=== PATIENT | male | born 1970 | race Caucasian/White ===

== ENCOUNTER 2021-01-15 17:06 | Emergency (ER) | payer BC, SELFPAY ==
--- NOTE | ~2021-01-15 | CT_ITS ---
EXAMINATION: CT abdomen pelvis w con INDICATION: Nausea and vomiting, right upper quadrant pain TECHNIQUE: Computed tomographic images of the abdomen and pelvis were obtained after the administrati on of 100 cc of Omnipaque 350 intravenous contrast. The dose-length product (DLP) was 1494.99 mGy-cm. Automated exposure control and iterative reconstruction technique were employed. COMPARISON: None available FINDINGS: The lung bases are clear. The heart size is normal. Punctate calcifications in otherwise no rmal appearing liver and spleen likely represent healed granulomatous disease. The pancreas and right adrenal gland are normal. There is a 4 cm low-density mass of the left adrenal gland, consistent wit h an adenoma. The gallbladder is distended and contains multiple stones. There appears to be a mild w all thickening of the gallbladder. There is mild edematous stranding of the pericholecystic fat. The kidneys are unremarkable. No pathologically enlarged abdominal or pelvic lymph nodes are identified. There is no free intraperitoneal gas or evidence of bowel obstruction. There is moderate lumbar spond ylosis. IMPRESSION: 1. Cholelithiasis with CT findings consistent with acute cholecystitis. Surgical evaluation is recomm ended. Consider further evaluation with ultrasound and/or nuclear hepatobiliary scan. Reviewed, dictated and finalized at location A. IMPRESSION: 1. Cholelithiasis with CT findings consistent with acute cholecystitis. Surgica l evaluation is recommended. Consider further evaluation with ultrasound and/or nuclear hepatobiliary scan.
[2021-01-15 17:10] VITALS: BP 191/118; PULSE 95; RESP 18; TEMP 36.9; O2SAT 98
--- NOTE | 2021-01-15 17:27 | ECG_ITS ---
Measurements Intervals [place] Rate: 79 P: 21 IA: 156 QRS: -1 QRSD: 97 T: 68 QT: 381 QTc: 437 Interpretive Statements SINUS RHYTHM ANTEROSEPTAL INFARCT, AGE INDETERMINATE BASELINE ARTIFACT- II, III, AVL, AVF ABNORMAL ECG Electronically Signed On 01-15-2021 17:38:49 CDT by Mandeep Velásquez D.O.
--- NOTE | 2021-01-15 17:33 | ED.GENADULT ---
HPI - General Adult General Chief complaint: Abdominal Pain Stated complaint: upper abd pain, nausea,sweating Source: patient Mode of arrival: ambulatory Limitations: no limitations History of Present Illness HPI narrative: Robi is a 50M with a PMH of GERD, and obesity that presented to the ED with RUQ pain. The pain started after eating a sandwich and drinking some beer a few days ago. It is a sharp stabbing pain that has been getting worse since that time. It radiates to his right upper back/shoulder. When he eats he gets nauseated and he has had 4 episodes of non-bloody vomiting. He denies any CP, SOB, lightheadedness, diarrhea, melena or hematochezia. Related Data Home Medications Medication Instructions Recorded Confirmed No Home Medications 01/15/21 01/15/21 Allergies Allergy/AdvReac Type Severity Reaction Status Date / Time No Known Allergies Allergy Verified 01/15/21 17:26 Review of Systems Constitutional: Constitutional: Reports chills Eyes: Eyes: Reports no additional eye complaints ENT: Reports system reviewed and no additional complaints, except as documented Cardiovascular: Cardiovascular: Reports no additional cardiovascular complaints Respiratory: Respiratory: Reports no additional respiratory complaints Gastrointestinal: Gastrointestinal: Reports as per HPI Genitourinary: Genitourinary: Reports no additional male genitourinary complaints Musculoskeletal: Musculoskeletal: Reports no additional musculoskeletal complaints Integumentary/Breasts: Skin/Breast: Reports system reviewed and no additional complaints, except as docu Neurologic: Reports system reviewed and no additional complaints, except as documented Psychiatric: Psychiatric: Reports no additional psychiatric complaints Endocrine: Endocrine: Reports no additional endocrine complaints Hematologic/Lymphatic: Hematologic/Lymphatic: Reports no additional hematologic/lymphatic complaints Allergic/Immunologic: Allergic/Immunologic: Reports no additional allergic/immunologic complaints Exam Const: General: no acute distress and alert Orientation/consciousness: patient oriented x3 Limitations: No altered mental status HENMT: Head: normal to inspection Other: atraumatic Eyes: Conjunctivae: conjunctivae normal Pupils: Equal, round and reactive pupils present Neck: Neck: normal visual inspection Chest: Chest palpation & inspection: normal inspection of the chest and abnormal inspection of the chest Resp: Effort & Inspection: normal respiratory effort Auscultation: clear to auscultation bilaterally Cardio: Rate: regular rate Rhythm: regular rhythm Heart sounds: no murmurs GI: Other: Normal bowel sounds. Very TTP in the RUQ. No guarding or rebound tenderness. negative obturator and psoas signs. : General: Yes no CVA tenderness Skin: General skin exam: normal color Rashes: no rashes Neuro: General: patient oriented x3, moves all extremities and CN's II-XI intact bilaterally Extrem: General: normal to inspection Psych: Appearance: grossly normal Mental Status: mental status grossly normal Course Course Emergency Course: Ordered morphine for pain, labs and CT abd/pelvis w/ contrast. Morhpine brought the pain from a 10 to a seven. Another dose was given that made the pain more manageable. Labs showed leukocytosis and an elevated bilirubin. EXAMINATION: CT abdomen pelvis w con INDICATION: Nausea and vomiting, right upper quadrant pain TECHNIQUE: Computed tomographic images of the abdomen and pelvis were obtained after the administration of 100 cc of Omnipaque 350 intravenous contrast. The dose-length product (DLP) was 1494.99 mGy-cm. Automated exposure control and iterative reconstruction technique were employed. COMPARISON: None available FINDINGS: The lung bases are clear. The heart size is normal. Punctate calcifications in otherwise normal appearing liver and spleen likely represent healed granulomatous diseas
[2021-01-15 17:46] LABS: Basophils Absolute Auto 0.08 K/mm3 (0.00-0.10); Basophils Percent Auto 0.6 % (0.0-1.0); Eosinophils Absolute Auto 0.01 K/mm3 (0.02-0.50); Eosinophils Percent Auto 0.1 % (1.0-6.0); Hematocrit 53.5 % (40.0-54.0); Hemoglobin 18.8 g/dL (14.0-18.0); Immature Granulocyte Absolute 0.07 K/mm3 (0.00-0.00); Immature Granulocyte Percent A 0.5 % (0.0-0.0); Lymphocytes Absolute Auto 0.89 K/mm3 (1.10-4.50); Lymphocytes Percent Auto 6.7 % (18.0-42.0); Mean Corpuscular HGB Conc 35.1 g/dL (32.0-36.0); Mean Corpuscular Hemoglobin 30.9 pg (27.0-31.0); Mean Corpuscular Volume 87.8 fL (78.0-102.0); Mean Platelet Volume 9.3 fl (8.7-11.0); Monocytes Absolute Auto 0.94 K/mm3 (0.10-0.90); Monocytes Percent Auto 7.1 % (2.0-11.0); Neutrophils Absolute Auto 11.3 K/mm3 (1.7-7.2); Platelet Count Result 284 K/mm3 (150-420); Red Blood Count 6.09 M/mm3 (4.70-6.10); Red Cell Distribution Width 11.9 % (11.6-14.4); White Blood Count 13.2 K/mm3 (4.8-10.8)
[2021-01-15 17:59] LABS: INR 1.1; Prothrombin Time 11.9 Seconds (9.50-12.10)
[2021-01-15] MEDS: ONDANSETRON INJ 4 MG/2 ML VIAL (18:04)
[2021-01-15] MEDS: MORPHINE SULFATE (*CRX) 4 MG/ML INJ IV PUSH ×2 (18:04→18:49)
[2021-01-15] MEDS: LACTATED RINGERS 1,000 ML 999 ML IV CONT (18:04)
[2021-01-15 18:05] LABS: Alanine Aminotransferase 42 U/L (16-63); Albumin Level 3.7 g/dL (3.4-5.0); Alkaline Phosphatase 91 U/L (46-116); Anion Gap 12 mmol/L (8-16); Aspartate Amino Transferase 27 U/L (15-37); Bilirubin,Total 1.3 mg/dL (0.00-1.00); Blood Urea Nitrogen 13 mg/dL (7-18); Carbon Dioxide 28 mmol/L (21-32); Chloride 98 mmol/L (98-108); Estimated Glomerular Filt Rate > 60; Glucose 137 mg/dL (70-99); Lipase 72 U/L (73-393); Osmolality Calculated 288 mOsm/kg (285-295); Potassium 3.9 mmol/L (3.5-5.1); Sodium 138 mmol/L (136-145); Troponin I 8.2 ng/L (0.00-60.4)
[2021-01-15 18:08] LABS: Lactic Acid Reflex 1.4 mmol/L (0.4-2.0)
[2021-01-15 18:10] LABS: Calcium 9.3 mg/dL (8.5-10.1)
[2021-01-15] MEDS: ERTAPENEM 1 GM/NS 50 ML 1 GM/50 ML BAG IVPB (19:47)
[2021-01-15 19:49] LABS: Add Urine Microscopic? YES; Appearance Urine Clear (Clear); Bilirubin Urine Negative (Negative); Blood Urine 3+ (Negative); Color Urine Yellow (Yellow); Glucose Urine UA Negative (Negative); Ketones Urine Trace (Negative); Leukocyte Esterase Ur Negative (Negative); Nitrate Urine Negative (Negative); Protein Urine 3+ (Negative)
[2021-01-15 19:54] LABS: Bacteria Urine Trace /hpf; Squamous Epithelial Cell Urine None seen /hpf (Few); WBC Urine 0-3 /hpf (0-3)
[2021-01-15] MEDS: HYDROmorphone HCL INJ (*CRX) 2 MG/ML VIAL 0.5 MG IV PUSH (20:26)
[2021-01-15 20:39] VITALS: BP 164/77; PULSE 74; RESP 18; O2SAT 96
[2021-01-15 21:38] VITALS: BP 163/89; PULSE 77; RESP 20; TEMP 37.1; O2SAT 97
== END 2021-01-15 22:07 | disposition short-term general hospital (02) ==
PROVIDERS: Emergency Provider Family Medicine; PCP Internal Medicine
DX: K80.40 Calculus of bile duct with cholecystitis, unspecified, without obstruction (principal)
CPT/HCPCS: 36415; 74177; 80053; 81001; 83605; 83690; 84484; 85025; 85610; 93005; 96361; 96365; 96375; 96376; 99285; J1170; J1335; J2270; J2405; J7120; Q9967

== ENCOUNTER 2021-01-15 23:17 | Inpatient (IN) | payer BC, SELFPAY ==
--- NOTE | ~2021-01-15 | US_ITS ---
US abdomen limited INDICATION: Cholelithiasis PROCEDURE: Realtime right upper abdominal ultrasound. COMPARISON: CT dated 01/15/2021. FINDINGS: The pancreas is normal without focal mass or pancreatic ductal dilation. Liver echotexture is increased, consistent with fatty infiltration. There is normal directional flow in the portal ve in. There are gallstones and gallbladder sludge. There is gallbladder wall thickening measuring 4 mm. Co mmon bile duct measures 7 mm. No sonographic Meek's sign. IMPRESSION: 1: Cholelithiasis with gallbladder sludge and gallbladder wall thickening. Findings suspicious for ch olecystitis. Consider correlation with nuclear hepatobiliary scan. 2: Hepatic steatosis. Reviewed, dictated and finalized at location A. IMPRESSION: 1: Cholelithiasis with gallbladder sludge and gallbladder wall thickening. Find ings suspicious for cholecystitis. Consider correlation with nuclear hepatobili griselda scan. 2: Hepatic steatosis.
--- NOTE | 2021-01-15 22:40 | ADMGEN ---
This patient, Robi Grimaldo, was admitted to Medical Room 346-. Patient/family oriented to hospital policies and general routines including ID bracelet, bed and alarms, visiting hours, pain management, procedures, bathroom and other care routines, personal items, smoking policy, room service/diet, and visiting hours. Information on how to activate the Rapid Response Team has been discussed. Patient/Family are encouraged to report perceived risks to care and to ask questions if they do not understand what they are told or what they should do.
[2021-01-15 23:02] VITALS: BMI 58.7
[2021-01-15 23:03] VITALS: BP 197/98; PULSE 77; RESP 20; TEMP 36.6; O2SAT 98
[2021-01-15] MEDS: LACTATED RINGERS 1,000 ML 100 ML IV CONT (23:36)
[2021-01-15] MEDS: MORPHINE SULFATE (*CRX) 2 MG/ML INJ IV PUSH (23:37)
[2021-01-16] VITALS (12 sets, daily range): BP systolic 153–193; BP diastolic 77–112; PULSE 75–104; RESP 13–25; TEMP 35.9–36.6; O2SAT 96–100
[2021-01-16 01:29] LABS: Add Urine Microscopic? YES; Appearance Urine Clear (Clear); Bilirubin Urine Negative (Negative); Blood Urine 2+ (Negative); Color Urine Yellow (Yellow); Glucose Urine UA Negative (Negative); Ketones Urine Negative (Negative); Leukocyte Esterase Ur Negative LEU/UL (Negative); Nitrate Urine Negative (Negative); Protein Urine 2+ mg/dL (Negative); Squamous Epithelial Cell Urine Rare /hpf (Few)
[2021-01-16 01:32] LABS: Specific Grav Ur 1.047 (1.001-1.035)
--- NOTE | 2021-01-16 04:16 | PM.IMHP ---
H&P: HPI History of Present Illness Date/Time: 01/16/21 04:16 Chief Complaint: EPIGASTRIC PAIN Narrative: THIS IS A 50-YEAR-OLD MALE WITH PAST MEDICAL HISTORY SIGNIFICANT FOR OBESITY, PATIENT PRESENTED TO THE EMERGENCY ROOM AT A [facility] DUE TO WORSENING EPIGASTRIC PAIN NAUSEA AND VOMITING FOR THE LAST COUPLE OF DAYS OR SO HE HAS NOT BEEN ABLE TO EAT HAS HAD ABDOMINAL PAIN LOCALIZED TO THE EPIGASTRIC AREA AT THE TIME OF MY VISIT HE RATED 7/10 HE DENIES ANY FEVERS ANY RIGORS ANY CHILLS STATES THAT HE HAD SIMILAR PAIN BEFORE 2 YEARS AGO BUT NOW HAS GOTTEN PROGRESSIVELY WORSE HAS BEEN PRESENT ALMOST DAILY AFTER MEALS MAINLY. PRELIMINARY WORKUP WAS SIGNIFICANT FOR CT OF ABDOMEN AND PELVIS WITH CHOLELITHIASIS AND CHOLECYSTITIS. PATIENT HAS BEEN TRANSFERRED FROM A [facility] TO [facility] FOR SURGERY EVALUATION. Review of Systems Review of Systems: EPIGASTRIC PAIN NAUSEA AND VOMITING Constitutional: Constitutional: Denies chills and Denies fever(s) Eyes: Eyes: Denies change in vision ENT: Reports system reviewed and no additional complaints, except as documented Cardiovascular: Cardiovascular: Denies irregular heart rhythm, Denies claudication, Denies lightheadedness, Denies radiating jaw, neck or arm pain, Denies palpitations, Denies dyspnea on exertion and Denies orthopnea Respiratory: Respiratory: Denies cough and Denies dyspnea Gastrointestinal: Gastrointestinal: Reports abdominal pain, Reports nausea and Reports vomiting Comments: METZGER IS NEGATIVE Genitourinary: Genitourinary: Denies dysuria and Denies flank pain Musculoskeletal: Musculoskeletal: Reports no additional musculoskeletal complaints Integumentary/Breasts: Skin/Breast: Reports system reviewed and no additional complaints, except as docu Neurologic: Reports system reviewed and no additional complaints, except as documented Psychiatric: Psychiatric: Reports no additional psychiatric complaints Endocrine: Endocrine: Reports no additional endocrine complaints Hematologic/Lymphatic: Hematologic/Lymphatic: Reports no additional hematologic/lymphatic complaints Allergic/Immunologic: Allergic/Immunologic: Reports no additional allergic/immunologic complaints [facility] Family History Family History (Updated 01/15/21 @ 23:00 by Anum Tamez RN) Sibling Acute myocardial infarction Diabetes mellitus Hypertension Sibling Acute myocardial infarction Mother Lung cancer Social History Social History Smoking status: Never smoker Second hand tobacco smoke exposure: No Alcohol intake: current Drinks per week: 30 Substance use: never Substance use type: does not use Gender identity (if verbalized by the patient): Male Sexual Orientation (if Verbalized by the Patient): Straight or Heterosexual Spiritual care concerns: No Meds Home Medications and Allergies Home Medications Medication Instructions Recorded Confirmed Type No Home Medications 01/15/21 01/15/21 History Allergies Allergy/AdvReac Type Severity Reaction Status Date / Time No Known Allergies Allergy Verified 01/15/21 22:58 Vital Signs Vital Signs - 24 hr 01/15/21 23:03 01/16/21 01:11 Temperature 97.8 F Pulse Rate 77 Respiratory Rate 20 Blood Pressure 197/98 H 168/98 H Pulse Oximetry 98 Exam Narrative: LAYING IN BED Const: General: cooperative, comfortable, no acute distress, well developed, alert, awake and other ( WELL-APPEARING) Nutritional Appearance: overweight Orientation/consciousness: patient oriented x3 HENMT: Head: normal to inspection, normocephalic and atraumatic Ears: hearing grossly normal bilaterally General nose exam: Normal external nose present Face and sinus: normal facial exam Mouth: Yes Normal oral and palatal mucosa present Eyes: General: appearance normal, both eyes and all related structures Alignment and Position: alignment normal
[2021-01-16] MEDS: MORPHINE SULFATE (*CRX) 2 MG/ML INJ IV PUSH ×2 (05:31→22:48)
[2021-01-16 06:18] LABS: Basophils Absolute Auto 0.1 K/mm3 (0.0-0.1); Basophils Percent Auto 0.5 % (0.2-1.2); Eosinophils Percent Auto 0.2 % (0-4.4); Hematocrit 50.8 % (42.0-52.0); Hemoglobin 17.2 g/dL (14.0-18.0); Immature Granulocyte Absolute 0.09 K/mm3 (0.00-0.031); Immature Granulocyte Percent A 0.6 % (0-0.5); Lymphocytes Absolute Auto 1.19 K/mm3 (0.9-3.2); Lymphocytes Percent Auto 8.2 % (18.3-44.2); Mean Corpuscular HGB Conc 33.9 g/dl (32-36); Mean Corpuscular Hemoglobin 30.8 pg (26-34); Mean Corpuscular Volume 90.9 fl (80-100); Mean Platelet Volume 9.5 fl (7.4-10.4); Monocytes Absolute Auto 1.9 K/mm3 (0.1-0.6); Monocytes Percent Auto 12.9 % (2.6-8.5); Neutrophils Absolute Auto 11.2 K/mm3 (1.3-6.7); Neutrophils Percent Auto 77.6 % (45.5-73.1); Platelet Count Result 264 k/mm3 (150-375); Red Blood Count 5.59 M/mm3 (4.6-6.20); Red Cell Distribution Width 12.6 % (11.5-14.5); White Blood Count 14.5 K/mm3 (4.5-10.0)
[2021-01-16 06:30] LABS: Partial Thromboplastin Time 34.9 SECONDS (22.3-36.8)
--- NOTE | 2021-01-16 09:53 | PM.CNGS ---
Assessment and Plan Assessment and plan (1) Acute calculous cholecystitis: Code(s): K80.00 - Calculus of gallbladder with acute cholecystitis without obstruction Status: Acute Assessment and Plan: CT scan and ultrasound reviewed and discussed with the patient in detail. He has evidence of acute cholecystitis with cholelithiasis and gallbladder sludge. WBC at 14,500 today. He continues to require IV analgesics into this morning, but reports his abdominal pain has improved some since being admitted. I discussed treatment options with the patient, including proceeding with surgery versus antibiotics and trying to advance his diet with outpatient follow-up. The patient would like to go ahead with surgery. Description of a laparoscopic cholecystectomy, possible open, was discussed in detail, as well as the risks, benefits, expected outcomes, and expected recovery. All questions were answered. I discussed the case with Dr. López, who will talk with the patient as well and look at the OR schedule. Continue NPO, IV antibiotics, IV fluids, and analgesics as needed. Additional Plan I have discussed the patient's case and plan of care with Dr. López. History of Present Illness Consult details Consult date: 01/16/21 Reason for consult: other (Possible acute cholecystitis with cholelithiasis) Requesting physician: Joana Jang MD Narrative: This is a 50-year-old obese male with a history of GERD, who presented to [place] ER yesterday with complaints of RUQ abdominal pain and vomiting. The patient reports an onset of RUQ abdominal pain Wednesday after eating a breakfast egg sandwhich. The pain continued throughout the day persisted without any alleviating factors. He tried to eat some grapes the following day, but otherwise has not had anything to eat since. He had 4-5 episodes of vomiting before coming into the ER. He also reports chills but no known fever. He then presented to the ER for further evaluation yesterday due the pain. CT scan of the abdomen and pelvis showed cholelithiasis with findings consistent with acute cholecystitis. Labs showed a WBC count of 13,200, but normal LFTs and lipase. The patient continued to have abdominal pain in the ER after receiving IV analgesics and was ultimately directly admitted to our hospital for surgical evaluation. Our service was consulted by the ED physician and the patient is now seen on the medical floor. He received IV Morphine just a few hours ago, which he says helps relieve his abdominal pain, but it begins to return a few hours after. Denies any nausea at this time. He does report having this type of pain intermittently in the past 2 years, but it is less severe and typically resolves spontaneously after a few hours. No previous surgical history. Review of Systems Review of Systems: All systems reviewed & are unremarkable except as noted in HPI and below Constitutional: Constitutional: Reports as per HPI, Denies chills, Denies fatigue and Denies fever(s) ENT: Reports system reviewed and no additional complaints, except as documented, Reports Normal hearing present and Denies dizziness Cardiovascular: Cardiovascular: Reports no additional cardiovascular complaints, Denies chest pain and Denies leg edema Respiratory: Respiratory: Reports no additional respiratory complaints, Denies cough and Denies dyspnea Gastrointestinal: Gastrointestinal: Reports as per HPI, Reports no additional gastrointestinal complaints, Reports abdominal pain, Denies change in bowel habits, Denies diarrhea, Reports nausea, Reports vomiting and Denies hematemesis Integumentary/Breasts: Skin/Breast: Denies wounds and Denies jaundice Neurologic: Reports system reviewed and no additional complaints, except as documented, Denies focal weakness, Denies numbness and Denies tingling PMFSH Past Medical History Medical History GERD (gastroesophageal reflux disease) S
[2021-01-16] MEDS: LACTATED RINGERS 1,000 ML 100 ML IV CONT ×2 (10:29→23:20)
--- NOTE | 2021-01-16 13:52 | WPDANESEPPF ---
Anes - Initial Pre Proc Eval Procedure: Operation Date: 01/16/21 16:00 Proposed Procedures p Laparoscopic Cholecystectomy, Possible Open - Akua López MD Date/Time: 01/16/21 13:52 Surgeon: Joana Jang MD Pre Op Diagnosis: Acute Cholecystitis Patient Data Age: 50 Gender: M Height: 1.8 m Weight: 132.6 kg Last Vital Signs Temp 35.9 C L 01/16/21 08:00 Pulse 83 01/16/21 08:00 Resp 16 01/16/21 08:00 BP 168/95 H 01/16/21 08:00 Pulse Ox 98 01/16/21 08:00 Allergies Allergy/AdvReac Type Severity Reaction Status Date / Time No Known Allergies Allergy Verified 01/15/21 22:58 Home Medications Medication Instructions Recorded Confirmed Type No Home Medications 01/15/21 01/15/21 History Laboratory Tests 01/16/21 01/16/21 01/16/21 01:16 05:54 05:54 WBC 14.5 K/mm3 H K/mm3 (4.5-10.0) RBC 5.59 M/mm3 M/mm3 (4.6-6.20) Hgb 17.2 g/dL g/dL (14.0-18.0) Hct 50.8 % % (42.0-52.0) MCV 90.9 fl fl (80-100) MCH 30.8 pg pg (26-34) MCHC 33.9 g/dl g/dl (32-36) RDW 12.6 % % (11.5-14.5) Plt Count 264 k/mm3 k/mm3 (150-375) MPV 9.5 fl fl (7.4-10.4) Immature Gran % (Auto) 0.6 % H % (0-0.5) Neut % (Auto) 77.6 % H % (45.5-73.1) Lymph % (Auto) 8.2 % L % (18.3-44.2) [place] % (Auto) 12.9 % H % (2.6-8.5) Eos % (Auto) 0.2 % % (0-4.4) Baso % (Auto) 0.5 % % (0.2-1.2) Lymph # (Auto) 1.19 K/mm3 K/mm3 (0.9-3.2) [place] # (Auto) 1.9 K/mm3 H K/mm3 (0.1-0.6) Eos # (Auto) 0.0 K/mm3 K/mm3 (0-0.3) Baso # (Auto) 0.1 K/mm3 K/mm3 (0.0-0.1) Abs Immat Gran (auto) 0.09 K/mm3 H K/mm3 (0.00-0.031) Absolute Neuts (auto) 11.2 K/mm3 H K/mm3 (1.3-6.7) Absolute Nucleated RBC 0.0 K/mm3 K/mm3 (0.0-0.012) Nucleated RBC % 0.0 % % (0.0-0.2) APTT 34.9 SECONDS SECONDS (22.3-36.8) Urine Color Yellow (Yellow) Urine Appearance Clear (Clear) Urine pH 6.0 (5.0-9.0) Ur Specific [place] 1.047 H (1.001-1.035) Urine Protein 2+ mg/dL H mg/dL (Negative) Urine Glucose (UA) Negative mg/dL mg/dL (Negative) Urine Ketones Negative mg/dL mg/dL (Negative) Ur Blood (Man) 2+ H (Negative) Urine Nitrate Negative (Negative) Urine Bilirubin Negative (Negative) Urine Urobilinogen 4.0 mg/dL H mg/dL (<2.0) Leukocyte Esterase Rfl Negative MATTIE/UL MATTIE/UL (Negative) Urine RBC 3-5 /hpf H /hpf (0-2) Urine WBC 7-9 /hpf H /hpf Ur Squamous Epith Cells Rare /hpf /hpf (Few) Patient hx anesthesia problems: none Family hx anesthesia problems: none [facility] Past Medical History Medical History GERD (gastroesophageal reflux disease) Surgical History Surgical History No pertinent past surgical history Family History Family History Sibling Acute myocardial infarction Diabetes mellitus Hypertension Gallbladder disease Sibling Acute myocardial infarction Gallbladder disease Mother Lung cancer Gallbladder disease Father Gallbladder disease Social History Social History Smoking status: Never smoker Second hand tobacco smoke exposure: No Alcohol intake: current Drinks per week: 30 Substance use: never Substance use type: does not use Occupation/Education: occupation Additional occupation/education comments: [employer] Gender identity (if verbalized by the patient): Male Sexual Orientation (if Verbalized by the Patient): Straight or Heterosex
--- NOTE | 2021-01-16 13:57 | PC.NURSE ---
On 01/16/21, the student, [Yamel Roach], provided care and completed [facility] documentation on this patient. I have reviewed the student's documentation and agree with the findings.
--- NOTE | 2021-01-16 14:37 | PC.NURSE ---
Pt to OR per bed. Spouse at bedside. Report to MARIA ALEJANDRA Gauthier.
[2021-01-16] MEDS: LACTATED RINGERS 1,000 ML 30 ML IV CONT ×2 (15:06→17:39)
--- NOTE | 2021-01-16 15:21 | SUR.PREOP ---
1500; PT Bp 187/112. HR 82. PT RELAXED. STATES PAIN 06/30. RETAKEN. 192/115. DR HAN NOTIFIED OF HIGH BP. NO ORDERS AT THIS TIME. STATES WILL MONITOR IN OR
--- NOTE | 2021-01-16 15:34 | WPDHPUPDATE1 ---
History and Physical Update Update Date/Time: 01/16/21 15:34 History and Physical has been reviewed, including an updated exam of the patient. There are NO changes in the patient's condition. Risks, benefits, and alternatives have been discussed and questions answered. Patient agrees to proceed with procedure.
--- NOTE | 2021-01-16 16:22 | PM.IMPN ---
Progress Note: A&P Assessment and Plan (1) Abdominal pain: Code(s): R10.9 - Unspecified abdominal pain Status: Acute Assessment and Plan: Abd CT showed cholecystitis and was confirmed by renal ultra sound NPO Surgery consulted and patient to go to surgery today IV morphine 2mg ordered for pain Zofran ordered for nausea supportive care LR at 100ml/hr (2) Intractable nausea and vomiting: Code(s): R11.2 - Nausea with vomiting, unspecified Status: Acute Assessment and Plan: Zofran 4mg IV Q6hr (3) Cholecystitis: Code(s): K81.9 - Cholecystitis, unspecified Status: Acute Assessment and Plan: Started on imipenem 500mg Q6hr Surgery consulted Surgical procedure today (4) Hypertension: Code(s): I10 - Essential (primary) hypertension Status: Acute Assessment and Plan: BP 187/112 SBP >160 DBP >85 Trend blood pressure Consider adding some lisinopril or HCTZ (5) Acute calculous cholecystitis: Code(s): K80.00 - Calculus of gallbladder with acute cholecystitis without obstruction Status: Acute Subjective Date/time seen: 01/16/21 14:00 Interval history: Patient is a 50-year-old male with no known past medical history that presented to the ED with abdominal pain. CT indicated patient probably had a cholecystitis and was confirmed by white upper quadrant ultrasound. Dr. López was consult inpatient is to go to surgery today. patient denies pain at this time he also denies the use of home meds. Patient denies chills, fevers, abdominal pain, nausea, vomiting, chest pain, shortness of breath, weakness, fatigue. It is noticed the patient's blood pressure is trending higher with a systolic of greater than 160 and diastolic greater than 90. Could be related to pain however will evaluate in the morning Review of Systems Review of Systems: All systems reviewed & are unremarkable except as noted in HPI and below Exam Const: General: cooperative, comfortable, no acute distress, well developed, alert and awake Nutritional Appearance: overweight Orientation/consciousness: patient oriented x3 HENMT: Head: normal to inspection, normocephalic and atraumatic Ears: hearing grossly normal bilaterally General nose exam: Normal external nose present Face and sinus: normal facial exam Mouth: Yes Normal oral and palatal mucosa present Eyes: General: appearance normal, both eyes and all related structures Alignment and Position: alignment normal Sclera: sclerae normal Pupils: Equal, round and reactive pupils present EOM: EOMs intact bilaterally Neck: Neck: full ROM, no lymphadenopathy and no JVD Thyroid: thyroid normal Lymphatic: no lymphadenopathy noted Resp: Effort & Inspection: normal respiratory effort and able to speak in complete sentences Auscultation: clear to auscultation bilaterally, no crackles, no rales, no rhonchi and no wheezes Cardio: Jugular venous distension: no JVD Rate: regular rate Rhythm: regular rhythm Heart sounds: S1 normal heart sound present and S2 normal heart sound present GI: Inspection: normal to inspection : General: Yes deferred Skin: General skin exam: normal color Rashes: no rashes Wounds: no wounds Neuro: General: patient oriented x3 and CN's II-XI intact bilaterally Cranial nerves: Yes CN's II-XII intact bilaterally and Yes Equal, round and reactive pupils present Cognition (Neuro): normal cognition Speech: normal speech Gait exam (Neuro): Normal gait present Motor exam (neuro): 5/5 motor strength present throughout Extrem: General: normal to inspection, full ROM, no joint enlargement and no pedal edema Objective Data Vital Signs Vital Signs: Vital Signs - 24 hr 01/15/21 23:03 01/16/21 01:11 01/16/21 05:16 Temperature 36.6 C 36.4 C L Pulse Rate 77 82 Respiratory Rate 20 20 Blood Pressure 197/98 H 168/98 H 169/94 H Pulse Oximetry 98 97 01/16/21
[2021-01-16] MEDS: BUPIVACAINE/EPINEPHRINE 0.5% 50 ML VIAL (17:16)
--- NOTE | 2021-01-16 17:36 | W.PM.PROC2 ---
Procedure Note - Detailed Date of Procedure 01/16/21 Pre-op Diagnosis Acute Cholecystitis Post-op Diagnosis same Procedure Performed Laparoscopic cholecystectomy Surgeon Akua López MD Anesthesia general Indications 50 y/o M presenting to ED c acute cholecystitis. Pt admitted and started on IV abx Findings acute cholecystitis Description of Procedure The patient was taken to the operating room placed in the supine position. After adequate induction of general anesthesia, the patient was prepped and draped in normal sterile fashion. A time-out was then performed to verify the patient's identity as well as the procedure being performed. I then made a 5 mm incision in the infraumbilical region. Through this, a Veress needle was placed into the peritoneal cavity and CO2 gas was then insufflated. After adequate pneumoperitoneum was achieved, the Veress needle was removed and a 5 mm optiview trocar was placed through this incision under direct visualization. I then placed the laparoscope through this trocar site and under direct visualization placed a further 12 mm subxiphoid port as well as 2 additional 5 mm ports in the right upper abdomen. The gallbladder was then identified and was noted to be very inflamed and distended. We were unable to grasp the gallbladder given the amount of inflammation and decompression was done. The gallbladder was decompressed with an ovarian needle. The decompressed bile was noted to be a thick mucus. I was then able to place a grasper at the dome of the gallbladder and this was retracted anterior and cephalad up over the liver. A 2nd retractor was then placed at the infundibulum and retracted laterally, this allowed visualization of the triangle of Calot. I then was able to visualize the cystic duct in its entirety from its proximal insertion into the gallbladder, to its distal junction with the common hepatic/common bile duct junction. At this point, I carefully skeletonized the proximal cystic duct with the [place] dissector. I then clipped and transected the proximal cystic duct. Next I visualized the cystic artery. Again the artery was skeletonized, clipped, and transected. I then used the Bovie cautery to take down the peritoneal attachments of the gallbladder off the liver bed. This was very difficult given the amount of inflammation in the posterior space. Once the gallbladder specimen was completely detached, an endo-pouch was placed through the 12 mm port site. I then placed the gallbladder specimen into the Endo pouch and removed the endo-pouch from the 12 mm port site. The specimen will now be sent to pathology for further review. I then copiously irrigated the right upper quadrant. Some mild oozing was noted in the liver bed and this was controlled with the bovie cautery. I then placed some hemostatic powder in the liver bed. Hemostasis was noted in the liver bed, the clips were noted to be in good position on both the cystic duct stump and the cystic artery stump. No other pathology was noted in the right upper quadrant. I then moved the laparoscope to the subxiphoid port. No iatrogenic injury or other pathology was noted in the lower abdomen. I then closed the 12 mm trocar site under direct visualization using the Christian cone and 0 Vicryl suture. At this point, the abdomen was desufflated and all ports removed. All port sites were then closed with 4.O Monocryl subcuticular sutures. Dermabond was placed on each incision. The patient tolerated the procedure well, was extubated in the operating room postoperative and will be transferred to the recovery room in stable condition Estimated Blood Loss 25 Drains No Packing No Pathology yes Complications No immediate complications Condition stable Disposition PACU
[2021-01-16] MEDS: LABETALOL HCL INJ 100 MG/20 ML VIAL IV PUSH (17:47)
[2021-01-16] MEDS: HYDROmorphone HCL INJ (*CRX) 1 MG/ML SYR IV PUSH (17:57)
[2021-01-16] MEDS: fentaNYL CITRATE INJ (*CRX) 100 MCG/2 ML VIAL 25 MCG IV PUSH ×2 (18:16→18:20)
--- NOTE | 2021-01-16 18:37 | PC.NURSE ---
Patient returned from surgery per bed. Spouse at bedside. Report received from MARIA ALEJANDRA Galindo.
[2021-01-17 04:14] VITALS: PULSE 78; RESP 18; TEMP 36; O2SAT 97
[2021-01-17] MEDS: MORPHINE SULFATE (*CRX) 2 MG/ML INJ IV PUSH (04:43)
[2021-01-17 06:06] LABS: Hematocrit 44.9 % (42.0-52.0); Hemoglobin 15.7 g/dL (14.0-18.0); Mean Corpuscular Hemoglobin 31.6 pg (26-34); Mean Corpuscular Volume 90.3 fl (80-100); Mean Platelet Volume 9.6 fl (7.4-10.4); Platelet Count Result 227 k/mm3 (150-375); Red Blood Count 4.97 M/mm3 (4.6-6.20); Red Cell Distribution Width 12.1 % (11.5-14.5); White Blood Count 16.8 K/mm3 (4.5-10.0)
[2021-01-17 06:19] VITALS: BP 188/92
[2021-01-17 06:20] LABS: Alanine Aminotransferase 47 U/L (4-50); Albumin Level 3.5 g/dL (3.5-5.1); Alkaline Phosphatase 78 U/L (38-126); Anion Gap 6 mmol/L (8-16); Aspartate Amino Transferase 54 U/L (17-59); Bilirubin,Total 1.9 mg/dL (0.2-1.3); Blood Urea Nitrogen 13 mg/dL (9-20); Carbon Dioxide 26 mmol/L (22-30); Chloride 103 mmol/L (98-107); Estimated CRCL calculation 117 ml/min; Estimated Glomerular Filt Rate > 60; Glucose 113 mg/dL (65-110); Potassium 3.9 mmol/L (3.4-5.0); Sodium 135 mmol/L (137-145)
[2021-01-17 07:27] VITALS: BP 190/98; PULSE 80; RESP 18; TEMP 36.1; O2SAT 97
--- NOTE | 2021-01-17 08:20 | WPDANESPN ---
Anes - Prog Note Post-Op Date/Time: 01/17/21 08:20 Cardiovascular status: normal Respiratory status: normal Airway patency: baseline Mental status: baseline Post-Op hydration status: normal Vital Signs: Last Vital Signs Temp 36.1 C L 01/17/21 07:27 Pulse 80 01/17/21 07:27 Resp 18 01/17/21 07:27 BP 190/98 H 01/17/21 07:27 Pulse Ox 97 01/17/21 07:27 Pain Score (VAS): 0 I/O: Intake & Output 01/16/21 01/17/21 01/17/21 23:59 07:59 15:59 Intake Total 0 1150 Output Total 100 Balance 1989 1150 Laboratory Tests 01/17/21 05:51 01/17/21 05:51 01/17/21 01/17/21 05:51 05:51 WBC 16.8 H RBC 4.97 Hgb 15.7 Hct 44.9 MCV 90.3 MCH 31.6 MCHC 35.0 RDW 12.1 Plt Count 227 MPV 9.6 Sodium 135 L Potassium 3.9 Chloride 103 Carbon Dioxide 26 Anion Gap 6 L BUN 13 Creatinine 0.90 Estim Creat Clear Calc 117 Estimated GFR > 60 Glucose 113 H Calcium 9.0 Total Bilirubin 1.9 H AST 54 ALT 47 Alkaline Phosphatase 78 Total Protein 7.0 Albumin 3.5 Microbiology 01/16/21 01:16 Urine Clean Catch Urine Culture - Final Post-procedural complaints: none Patient Feedback: Patient satisfied with anesthetic care.
--- NOTE | 2021-01-17 08:58 | PM.PNGS ---
Progress Note: A&P Assessment and Plan (1) Acute calculous cholecystitis: Code(s): K80.00 - Calculus of gallbladder with acute cholecystitis without obstruction Status: Acute Assessment and Plan: doing well overall, pain controlled c po analgesia, cheri diet, ok to dc from surgical standpoint once cleared by medical team, rx sent for po anagesia, f/u 2 wks p dc Subjective Subjective Date/Time Seen: 01/17/21 08:58 doing well, c/o soreness, cheri diet this am Review of Systems Review of Systems: All systems reviewed & are unremarkable except as noted in HPI and below Exam Const: General: cooperative, comfortable and no acute distress Resp: Auscultation: clear to auscultation bilaterally Cardio: Rate: regular rate Rhythm: regular rhythm GI: Inspection: normal to inspection, distended and incision GI Palp: Yes Soft to palpation and Yes Tenderness to palpation present (GI) Other: soft, sl dist, mihir TTP, incisions C/D/I Objective Data Vital Signs Vital Signs: Vital Signs - 24 hr 01/16/21 13:52 01/16/21 15:00 01/16/21 17:45 Temperature 36.4 C 36.6 C Pulse Rate 79 82 104 H Respiratory Rate 18 20 25 H Blood Pressure 172/90 H 187/112 H 193/102 H Pulse Oximetry 97 96 99 01/16/21 17:47 01/16/21 17:53 01/16/21 18:10 Temperature Pulse Rate 88 88 87 Respiratory Rate 19 19 Blood Pressure 171/99 H 178/92 H Pulse Oximetry 100 98 01/16/21 18:25 01/16/21 19:55 01/16/21 23:54 Temperature 36.2 C L 36.1 C L Pulse Rate 87 92 75 Respiratory Rate 13 18 18 Blood Pressure 153/77 H 156/87 H 158/89 H Pulse Oximetry 96 97 97 01/17/21 04:14 01/17/21 06:19 01/17/21 07:27 Temperature 36.0 C L 36.1 C L Pulse Rate 78 80 Respiratory Rate 18 18 Blood Pressure 188/92 H 190/98 H Pulse Oximetry 97 97 Intake/Output Intake/Output: Intake & Output 01/14/21 01/15/21 01/16/21 01/17/21 23:59 23:59 23:59 23:59 Intake Total 3390 1150 Output Total 1100 Balance 2290 1150 Meds/Results Medications: Active Medications Generic Name Dose Route Start Last Admin Trade Name Freq PRN Reason Stop Dose Admin Hydrocodone Bitart/Acetaminophen 1 tab 01/16/21 18:30 Hydrocodone/Acetaminophen (*Crx) 5-325 Mg Tablet PO Q4H PRN Pain Rated 4-6 Lactated Ringer's 1,000 mls @ 100 mls/hr 01/15/21 23:20 01/16/21 23:20 Lr - Lactated Ringers Iv IV CONT 100 mls/hr .Q10H NATHALIE Administration Acetaminophen 1,000 mg in 100 mls @ 400 mls/hr 01/16/21 09:50 01/16/21 10:44 Ofirmev 1,000 Mg Ivpb IVPB 01/17/21 09:51 Infused Q6H PRN Infusion PAIN 1-3 Magnesium Hydroxide 30 ml 01/15/21 23:17 Magnesium Hydroxide Susp 30 Ml Udc PO DAILY PRN Constipation Morphine Sulfate 2 mg 01/15/21 23:17 01/17/21 04:43 Morphine Sulfate (*Crx) 2 Mg/Ml Inj IV PUSH 2 mg Q4H PRN Administration Pain Rated 7-10 Naloxone HCl 0.1 mg 01/15/21 23:17 Naloxone Hcl 0.4 Mg/Ml Vial IV PUSH Q2M PRN Opiate Reversal Ondansetron HCl 4 mg 01/15/21 23:17 Ondansetron Inj 4 Mg/2 Ml Vial IV PUSH Q6H PRN Nausea And Vomiting Ondansetron HCl 4 mg 01/16/21 13:52 Ondansetron Inj 4 Mg/2 Ml Vial IV PUSH ONCE PRN Nausea Radiology Results: ITS Impressions Abdomen Ultrasound 01/16/21 08:01 IMPRESSION: 1: Cholelithiasis with gallbladder sludge and gallbladder wall thickening. Findings suspicious for cholecystitis. Consider correlation with nuclear hepatobiliary scan. 2: Hepatic steatosis. Labs Labs: Laboratory Results - last 24 hr 01/17/21 01/17/21 05:51 05:51 WBC 16.8 H RBC 4.97 Hgb 15.7 Hct 44.9 MCV 90.3 MCH 31.6 MCHC 35.0 RDW 12.1 Plt Count 227 MPV 9.6 Sodium 135 L Potassium 3.9 Chloride 103 Carbon Dioxide 26 Anion Gap 6 L BUN 13 Creatinine 0.90 Estim Creat Clear Calc 117 Estimated GFR > 60 Glucose 113 H Calcium 9.0 Total Bilirubin 1.9 H AST
--- NOTE | 2021-01-17 09:43 | PM.DS ---
DS: Admitting Diagnosis Admitting Diagnosis Cholecystitis DS: Discharge Diagnosis Discharge Diagnosis (1) Cholecystitis: Code(s): K81.9 - Cholecystitis, unspecified Status: Acute Assessment and Plan: Started on imipenem 500mg Q6hr Surgery consulted Surgical procedure today gallbladder was removed patient was able tolerate diet pain is minimal discharge instructions and follow-up her surgery (2) Abdominal pain: Code(s): R10.9 - Unspecified abdominal pain Status: Acute Assessment and Plan: Abd CT showed cholecystitis and was confirmed by renal ultra sound NPO Surgery consulted and patient to go to surgery today IV morphine 2mg ordered for pain Zofran ordered for nausea supportive care LR at 100ml/hr patient able to tolerate diet no nausea or vomiting reported patient is going home today. (3) Intractable nausea and vomiting: Code(s): R11.2 - Nausea with vomiting, unspecified Status: Acute Assessment and Plan: Zofran 4mg IV Q6hr (4) Hypertension: Code(s): I10 - Essential (primary) hypertension Status: Acute Assessment and Plan: BP 187/112 SBP >160 DBP >85 Trend blood pressure Consider adding some lisinopril or HCTZ Talked to patient about following up with primary care about hypertension blood pressures are still high at 190/98 going to start patient on 5mg of amlodipine DS: Summary Hospital Course Hospital Course: date of service 01/17/2021 at 9:40 a.m. patient is a 50-year-old male with no known past medical history who presented the emergency room for worsening epigastric pain accompanied with nausea and vomiting. Abdominal and pelvis CT scan showed that the patient did have cholecystitis an abdomen ultrasound confirmed cholecystitis. Patient was referred to surgery for Cholecystectomy. Patient was then taken to surgery 01/16/2021 for gallbladder removal. Gallbladder was removed laparoscopically. patient's labs have been stable throughout admission. it is also been noted that the patient's blood pressure has been running high. Blood pressure was 191/118 upon admission and has been trending above 160 systolic and above 85 diastolically. Patient was started on amlodipine 5 mg to help control this. Patient was also educated about going to see his primary care about his blood pressure. Patient was also educated about the risk of having higher blood pressure including heart attack, strokes, kidney failure. Currently patient only complains of a little bit of abdominal pain which he rates at 3/10. The patient was concerned stating that this surgery sounded like it was a little bit rougher than what it should have been. He stated that Dr. López told him that his gallbladder was very inflamed and was roughly 4 times the size it should have been. The patient also stated that he got his discharge instructions from the surgeon. 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 Patient denied chest pain, shortness of breath, nausea, vomiting, fevers, sweats, chills, headaches, numbness and tingling, or syncope. Status at Discharge Functional status at discharge: independent ambulation Overall status at discharge: patient is back to baseline Time Spent with Patient Time attestation: Total time spent providing and/or coordinating discharge services: 48 minutes Time spent: Greater than 30 minutes Specific discharge activities: education, chart review, lab review, physical exam, diagnostic testing, care planning, Documentation Exam Const: General: cooperative, comfortable, no acute distress, well developed, alert and awake Nutritional Appearance: overweight Orientation/consciousness: oriented to person, oriented to place, oriented to time and patient oriented x3 Limitations: physical limitations (recent surgery) HENMT: Head: normal to inspection
--- NOTE | 2021-01-17 10:40 | PC.NURSE ---
On 01/17/21, the student, [Yamel Roach], provided care and completed [facility] documentation on this patient. I have reviewed the student's documentation and agree with the findings.
[2021-01-17] MEDS: amLODIPine BESYLATE 5 MG TABLET PO (11:38)
[2021-01-17 12:38] VITALS: BP 160/94; PULSE 85; RESP 18; TEMP 36.4; O2SAT 97
[2021-01-17] MEDS: HYDROcodone/acetaminophen (*CRX) 5-325 MG TABLET 1 TAB PO (12:54)
== END 2021-01-17 14:12 | disposition home or self-care (01) | DRG 418 ==
PROVIDERS: Nurse Practitioner; Surgery; Admitting Provider Internal Medicine; PCP Internal Medicine; Visit Provider Internal Medicine
PROC: 0FT44ZZ Resection of Gallbladder, Percutaneous Endoscopic Approach (ICD-10-PCS; CPT 47562; principal; 2021-01-16 16:00)
DX: K80.00 Calculus of gallbladder with acute cholecystitis without obstruction (principal); Z68.41 Body mass index [BMI] 40.0-44.9, adult; E66.9 Obesity, unspecified; I10 Essential (primary) hypertension
CPT/HCPCS: 36415; 76705; 80053; 81001; 85025; 85027; 85730; 87040; 87086; 88304; A9270; J0131; J0743; J1100; J1170; J2250; J2270; J2405; J2704; J2710; J3010; J7030; J7120

== ENCOUNTER 2023-02-14 11:26 | Emergency (ER) | payer OTHER, SELFPAY ==
[2023-02-14] VITALS (11 sets, daily range): BP systolic 149–162; BP diastolic 90–99; PULSE 71–91; RESP 16–18; TEMP 36.8–37.1; O2SAT 93–100
--- NOTE | 2023-02-14 11:34 | ECG_ITS ---
Measurements Intervals Pelzer Rate: 80 P: 44 ND: 182 QRS: -1 QRSD: 98 T: 58 QT: 380 QTc: 439 Interpretive Statements SINUS RHYTHM NORMAL ECG COMPARED TO ECG 01/15/2021 17:36:16 NO SIGNIFICANT CHANGES Electronically Signed On 02-15-2023 12:07:14 CDT by Malcolm Kim M.D.
--- NOTE | 2023-02-14 11:43 | ED.DIZZY ---
HPI - Dizziness General Chief Complaint: Dizziness Stated Complaint: high blood pressure Time Seen by Provider: 02/14/23 11:34 Source: patient and family Mode of arrival: ambulatory Limitations: no limitations History of Present Illness HPI Narrative: 52 yo M with PMHx of HTN, not currently taking any meds, presents to the ED due to lightheadedness that started after a full week of working in the heat last week. Also has decreased appetite, n/v, poor sleep. He went to the urgent care where his BP was elevated in the 160s systolic and he was told to go to the ER. Pt denied any chest pain, shortness of breath, abdominal pain. He is urinating and having normal bowel movements. He denied any focal weakness, numbness or tingling, slurred speech or difficulty finding words. He said today he noticed a slight headache. MD elicited complaint: lightheadedness Onset (ago): day(s) Timing: gradual onset Severity: moderate Description: lightheadedness Context: exertion History of similar symptoms: No Exacerbating factors: nothing Relieving factors: nothing Associated symptoms: nausea and vomiting Related Data Home Medications Medication Instructions Recorded Confirmed No Home Medications 02/14/23 02/14/23 Allergies Allergy/AdvReac Type Severity Reaction Status Date / Time No Known Allergies Allergy Verified 02/14/23 11:37 Review of Systems Review of Systems: All systems reviewed & are unremarkable except as noted in HPI and below PMFSH Past Medical History Medical History GERD (gastroesophageal reflux disease) Surgical History Surgical History Hx laparoscopic cholecystectomy 01/16/21 Family History Family History Sibling Acute myocardial infarction Diabetes mellitus Hypertension Gallbladder disease Sibling Acute myocardial infarction Gallbladder disease Mother Lung cancer Gallbladder disease Father Gallbladder disease Social History Social History Smoking status: Never smoker Second hand tobacco smoke exposure: No Alcohol intake: current Drinks per week: 30 Substance use: never Substance use type: does not use Occupation/Education: occupation 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 Gender identity (if verbalized by the patient): Male Sexual Orientation (if Verbalized by the Patient): Straight or Heterosexual Spiritual care concerns: No Exam Const: General: cooperative, healthy appearing, comfortable, no acute distress, well developed, alert, awake, average body habitus and well nourished Nutritional Appearance: average body habitus and well nourished Orientation/consciousness: oriented to person, oriented to place and oriented to time Limitations: no limitations HENMT: Head: normal to inspection Ears: hearing grossly normal bilaterally, external ears normal and TM's normal bilaterally Face/Nose/Sinus: Normal external nose present, Normal nares present, No nasal polyps present, Normal nasal mucous membranes and turbinates present, Normal septum present, No nasal discharge present, normal facial exam, sinuses nontender and face symmetric Face and sinus: normal facial exam, sinuses nontender and face symmetric Mouth: Yes Normal oral and palatal mucosa present, Yes lip normal, Yes tongue normal, Yes Normal salivary glands and ducts present, Yes oropharynx normal and Yes moist mucous membranes Teeth and gingiva: dentition normal and gingiva normal Throat: posterior oropharynx normal, tonsils normal and uvula midline Eyes: General: appearance normal, both eyes and all related structures Eyelids: eyelids normal Conjunctivae: conjunctivae normal Sclera: sclerae normal Cornea: corneas normal Pupils: Equal, round and reactive pupils pr
[2023-02-14 12:03] LABS: Hematocrit 47.8 % (40.0-54.0); Hemoglobin 16.4 g/dL (14.0-18.0); Mean Corpuscular HGB Conc 34.3 g/dL (32.0-36.0); Mean Corpuscular Hemoglobin 30.8 pg (27.0-31.0); Mean Corpuscular Volume 89.8 fL (78.0-102.0); Mean Platelet Volume 9.7 fl (8.7-11.0); Platelet Count Result 271 K/mm3 (150-420); Red Blood Count 5.32 M/mm3 (4.70-6.10); Red Cell Distribution Width 11.9 % (11.6-14.4); White Blood Count 7.1 K/mm3 (4.8-10.8)
[2023-02-14 12:23] LABS: Alanine Aminotransferase 37 U/L (16-63); Albumin Level 3.2 g/dL (3.4-5.0); Alkaline Phosphatase 77 U/L (46-116); Anion Gap 6 mmol/L (8-16); Aspartate Amino Transferase 30 U/L (15-37); Bilirubin,Total 1.6 mg/dL (0.00-1.00); Blood Urea Nitrogen 15 mg/dL (7-18); Calcium 8.6 mg/dL (8.5-10.1); Carbon Dioxide 29 mmol/L (21-32); Chloride 101 mmol/L (98-108); Estimated Glomerular Filt Rate > 60; Glucose 182 mg/dL (70-99); Osmolality Calculated 287 mOsm/kg (285-295); Sodium 136 mmol/L (136-145); Total Protein 7.1 g/dL (6.4-8.2); Troponin I 18.5 ng/L (0.00-60.4)
[2023-02-14] MEDS: SODIUM CHLORIDE 0.9% IV 500 ML 999 ML IV CONT (12:51)
== END 2023-02-14 13:25 | disposition home or self-care (01) ==
PROVIDERS: Emergency Provider Emergency Medicine; PCP Internal Medicine
DX: T67.5XXA Heat exhaustion, unspecified, initial encounter (principal); I10 Essential (primary) hypertension; R42 Dizziness and giddiness
CPT/HCPCS: 36415; 80053; 84484; 85027; 93005; 99283; J7040

== ENCOUNTER 2023-02-15 11:13 | Outpatient (CLI) | payer OTHER, SELFPAY ==
--- NOTE | ~2023-02-15 | XR_ITS ---
Clinical Indication: Hypertension PA and lateral views of the chest: Comparison: None Findings: The lungs are clear, without evidence of focal consolidation or pleural effusion. Cardiome diastinal silhouette is within normal limits. Bones and soft tissues are unremarkable. Impression: Normal chest. Reviewed, dictated and finalized at location . Impression: Normal chest.
[2023-02-15 11:32] LABS: Appearance Urine Clear (Clear); Bilirubin Urine Negative (Negative); Blood Urine 3+ (Negative); Color Urine Yellow (Yellow); Glucose Urine UA Negative (Negative); Ketones Urine Negative (Negative); Leukocyte Esterase Ur Negative (Negative); Nitrate Urine Negative (Negative); Protein Urine 3+ (Negative); pH Urine 6.5 (5.0-8.0)
[2023-02-15 11:37] LABS: Add Urine Microscopic? YES; RBC Urine 21-50 /hpf (0-2)
[2023-02-15 11:38] LABS: Bacteria Urine 1+ /hpf; Squamous Epithelial Cell Urine Rare /hpf (Few); WBC Urine None seen /hpf (0-3)
[2023-02-15 11:40] LABS: Hemoglobin A1C 5.5 % (<5.7)
[2023-02-15 12:21] LABS: Alanine Aminotransferase 36 U/L (16-63); Albumin Level 3.3 g/dL (3.4-5.0); Alkaline Phosphatase 76 U/L (46-116); Anion Gap 5 mmol/L (8-16); Aspartate Amino Transferase 27 U/L (15-37); Bilirubin,Total 1.5 mg/dL (0.00-1.00); Blood Urea Nitrogen 13 mg/dL (7-18); CRP 0.6 mg/dL (0.0-0.9); Calcium 8.9 mg/dL (8.5-10.1); Carbon Dioxide 32 mmol/L (21-32); Chloride 101 mmol/L (98-108); Cholesterol 121 mg/dL (0-200); Estimated Glomerular Filt Rate > 60; Free T3 2.45 pg/mL (2.18-3.98); Glucose 102 mg/dL (70-99); HDL Direct 24 mg/dL (40-60); LDL Cholesterol Calculated 77 mg/dL (<130); Osmolality Calculated 286 mOsm/kg (285-295); Potassium 4.4 mmol/L (3.5-5.1); Prostate Specific Antigen 0.7 ng/mL (< OR = 4.0); Sodium 138 mmol/L (136-145); Thyroid Stimulating Hormone 2.18 uIU/mL (0.36-3.74); Total Protein 6.8 g/dL (6.4-8.2); Triglycerides 98 mg/dL (0-150)
== END 2023-02-15 11:14 | disposition home or self-care (01) ==
PROVIDERS: PCP Internal Medicine; Visit Provider Internal Medicine
DX: Z00.00 Encounter for general adult medical examination without abnormal findings (principal); I10 Essential (primary) hypertension; R53.83 Other fatigue; R51.9 Headache, unspecified; Z12.5 Encounter for screening for malignant neoplasm of prostate
CPT/HCPCS: 36415; 71046; 80053; 80061; 81001; 83036; 84153; 84439; 84443; 84481; 86140; G0103

== ENCOUNTER 2023-02-17 10:16 | Outpatient (CLI) | payer OTHER, SELFPAY ==
--- NOTE | ~2023-02-17 | CT_ITS ---
EXAMINATION: CT abdomen pelvis wo con DATE: 02/17/2023 10:38 INDICATION: HEMATURIA/CARDIOMEGALY TECHNIQUE: Computed tomography (CT) of the abdomen and pelvis was performed without intravenous contr ast. Automated exposure control and iterative reconstruction technique were employed. The dose-length product was 1016.24 mGy-cm. COMPARISON: 01/15/2021. FINDINGS: Lower thorax: Mild coronary artery calcifications. Clear lung bases. Liver: Granulomatous calcifications. Biliary/Gallbladder: Gallbladder is absent. No bile duct dilation. Pancreas: Mild fatty infiltration. Spleen: Granulomatous calcifications. Adrenals:Left adrenal adenoma. Kidneys: No suspicious mass or hydronephrosis. No obstructing calcification. GI tract: No small or large bowel dilation. Normal appendix. Mesentery/Peritoneum: No ascites, mass, or free air. Retroperitoneum: No mass. Pelvis: Pelvic organs are within normal limits. Soft Tissues: Uncomplicated appearing small fat-containing umbilical and bilateral inguinal hernias. Bones: No acute osseous finding. IMPRESSION: No acute abdominopelvic process detected. No CT finding that would explain hematuria. Reviewed, dictated and finalized at location K.
== END 2023-02-17 10:17 | disposition home or self-care (01) ==
PROVIDERS: PCP Internal Medicine; Visit Provider Internal Medicine
DX: R31.9 Hematuria, unspecified (principal); I51.7 Cardiomegaly
CPT/HCPCS: 74176